=== PATIENT | male | born 1970 | race Caucasian/White ===

== ENCOUNTER → 2024-02-01 08:43 | Outpatient (BNVA) | payer OTHER, SELFPAY | PROVIDERS: Visit Provider Physician Assistant Medical | DX: S61.211A Laceration without foreign body of left index finger without damage to nail, initial encounter (principal); S62.661A Nondisplaced fracture of distal phalanx of left index finger, initial encounter for closed fracture; W31.1XXA Contact with metalworking machines, initial encounter | CPT/HCPCS: 12001; 73140; 99204 ==

== ENCOUNTER → 2024-02-04 08:05 | Outpatient (BNVA) | payer OTHER, SELFPAY | PROVIDERS: Visit Provider Physician Assistant Medical | DX: S61.211A Laceration without foreign body of left index finger without damage to nail, initial encounter (principal); S62.661A Nondisplaced fracture of distal phalanx of left index finger, initial encounter for closed fracture; W31.1XXA Contact with metalworking machines, initial encounter | CPT/HCPCS: 99213 ==

== ENCOUNTER → 2024-02-12 13:19 | Outpatient (BNVA) | payer OTHER, SELFPAY | PROVIDERS: Visit Provider Physician Assistant Medical | DX: S61.211A Laceration without foreign body of left index finger without damage to nail, initial encounter (principal); S62.661A Nondisplaced fracture of distal phalanx of left index finger, initial encounter for closed fracture; W31.1XXA Contact with metalworking machines, initial encounter | CPT/HCPCS: 99213 ==

== ENCOUNTER → 2024-02-26 11:48 | Outpatient (BNVA) | payer OTHER, SELFPAY | PROVIDERS: PCP Internal Medicine; Visit Provider Physician Assistant Medical | DX: S61.211D Laceration without foreign body of left index finger without damage to nail, subsequent encounter (principal); S62.661D Nondisplaced fracture of distal phalanx of left index finger, subsequent encounter for fracture with routine healing; W31.1XXD Contact with metalworking machines, subsequent encounter; L03.012 Cellulitis of left finger | CPT/HCPCS: 99213 ==

== ENCOUNTER → 2024-03-04 13:42 | Outpatient (BNVA) | payer OTHER, SELFPAY | PROVIDERS: PCP Internal Medicine; Visit Provider Physician Assistant Medical | DX: S61.211D Laceration without foreign body of left index finger without damage to nail, subsequent encounter (principal); S62.661D Nondisplaced fracture of distal phalanx of left index finger, subsequent encounter for fracture with routine healing; W31.1XXD Contact with metalworking machines, subsequent encounter | CPT/HCPCS: 99213 ==

== ENCOUNTER → 2025-01-09 14:48 | Outpatient (BNVA) | payer OTHER, SELFPAY | PROVIDERS: PCP Internal Medicine; Visit Provider Emergency Medicine | DX: M25.542 Pain in joints of left hand (principal) | CPT/HCPCS: 73130; 99203 ==

== ENCOUNTER → 2025-02-02 15:13 | Outpatient (BNVA) | payer OTHER, SELFPAY | PROVIDERS: PCP Internal Medicine; Visit Provider Emergency Medicine | DX: S67.191D Crushing injury of left index finger, subsequent encounter (principal); W31.1XXD Contact with metalworking machines, subsequent encounter; Z02.79 Encounter for issue of other medical certificate | CPT/HCPCS: 99214 ==

== ENCOUNTER 2025-02-28 08:50 | Outpatient (REF) | payer OTHER, SELFPAY ==
--- NOTE | ~2025-02-28 | XR_ITS ---
EXAMINATION: XR HAND, LEFT CLINICAL INFORMATION: M79.642 - Pain in left hand. Attention left thumb COMPARISON: X-ray 01/09/2025 TECHNIQUE: PA, lateral, and oblique views of the left hand. FINDINGS: Bone mineralization is normal. Soft tissue marker positioned pointing to the first digit. Mild first CMC, MCP and IP joint arthritis. No visible acute fracture or dislocation. Stable small corticated ossification adjacent to the ulna styloid process. No acute fractures otherwise seen. Mild arthritis of the IP and DIP joints of the fingers, more prominent in the fifth DIP joint, similar from previous.. No abnormal soft tissue calcification. XR/XR hand LT min 3V IMPRESSION: Osteoarthritis of the left hand as detailed above. Electronically signed by: Angus Macdonald MD 03/01/2025 07:24 AM REA
== END 2025-02-28 08:51 | disposition home or self-care (01) ==
LOC: HO.HOSX 08:50
PROVIDERS: Visit Provider Orthopaedic Surgery
DX: M18.12 Unilateral primary osteoarthritis of first carpometacarpal joint, left hand (principal)
CPT/HCPCS: 73130

== ENCOUNTER 2025-02-28 12:50 | Outpatient (AMB) | payer OTHER, SELFPAY ==
--- NOTE | 2025-02-28 12:59 | MHC.OFFVIS ---
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 States he has to do a lot of repetitive movement at work and this could be the cause of his pain. He has pain when bending thumb inward and feels soreness when his thumb is hyper extended back. At times has a sharp pain that radiates to his thenar muscle and to his wrist. He has numbness and tingling in his thumb as well as pain that has worsen in the last 6 months. No EMG done. 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 He complains of pain in his left thumb, near the base. His pain is worse with repetitive activities, hyperextension, or gripping activities. 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 Review of Systems Const All systems reviewed & are unremarkable except as noted in HPI and below Physical Exam Vital Signs: BMI result Body Mass Index 27.3 Const General: cooperative, healthy appearing and no acute distress Orientation/consciousness: patient oriented x3 HEENT Head: Yes normocephalic and Yes atraumatic Eyes EOM: EOMs intact bilaterally Resp Effort & Inspection: normal respiratory effort and able to speak in complete sentences Cardio Jugular venous distension: no JVD Skin General skin exam: turgor normal Rashes: no rashes Neuro General: patient oriented x3 Extrem Other: Evaluation of Left Upper Extremity: The patient is alert, oriented, and in no acute distress Neuro: Median, Ulnar, Radial nerves motor and sensory intact and sensation is normal to the tips of all digits Vascular: Cap refill brisk ROM: He can make a fist and extend all his digits No locking or catching Skin: No lacerations or abrasions. General: No Ecchymosis. No Erythema or evidence of infection. Most tender over basal joint mildly positive shoulder sign No tenderness over the a1 dajuan, MCP joint, or 1st dorsal compartment Negative finklstein test Radiographs: 3 views of the left hand were taken and viewed by me today in clinic. They show no fractures or dislocations. There is some mild basal joint arthritis and early arthritic changes in the thumb MCP & IP joints. Psych Appearance: grossly normal Affect: normal affect Attitude: cooperative Office Procedures AMB Fracture Care Details: no fracture, injection Fracture Billing Code: Fracture Billing Code Assessment & Plan Assessment & Plan (1) Arthritis of carpometacarpal (CMC) joint of left thumb: Code(s): M18.12 - Unilateral primary osteoarthritis of first carpometacarpal joint, left hand Category: Medical Plan Assessment & Plan: 1. Left basal joint arthritis Aggravated by prolonged repetitive work tasks This is a workers comp visit I educated him about this condition I discussed operative and non-operative treatment options The patient would like to proceed with an injection I discussed activity modification, they should limit or avoid any heavy or repetitive pinching or gripping activities He was fitted for a comfort cool brace to wear with daily activity He should work on ROM exercises, and avoid any gripping or strengthening activities I discussed the use of assistive devices for daily activity Injection #1: The risks and benefits of a steroid injection including but not limited to risk of damage to blood vessels, nerve, tendon, infection, skin bleaching, persistent or worsening pain, and failure to improve symptoms were discussed with the patient and they wish to proceed with the steroid injection. Once consent was obtained the skin over the dorsum of the Left basal joint was sterilely prepped. The joint was then injected with a combination of 1 mL of dexamethasone (4mg/ml) and 1% plain Lidocaine. The patient appears to have tolerated the procedure well and with no complications. He had good early relief before leaving clinic today. He knows that they may not have another steroid injection into this joint for least 4 months. Scribed for Shara Jacobsen MD by Saurabh Aguayo administrative medical director, on 02/28/25 at 1:30 PM, EST. Orders: Orders XR hand LT min 3V Today M79.642 - Pain in left hand Coding Level of Care Code New Pt Level 3 (08250) Diagnoses Arthritis of carpometacarpal (CMC) joint of left thumb M18.12 CPT Codes Fracture Care - Fracture Billing Code: Fracture Billing Code ([id number])
[2025-02-28 13:09] VITALS: BMI 27.3
== END 2025-02-28 13:54 | disposition home or self-care (01) ==
LOC: HO.HOS 12:51
PROVIDERS: PCP Internal Medicine; Visit Provider Orthopaedic Surgery
DX: M18.12 Unilateral primary osteoarthritis of first carpometacarpal joint, left hand (principal)
CPT/HCPCS: 20600; 99203

== ENCOUNTER → 2025-02-28 12:52 | Outpatient (BNV) | payer OTHER, SELFPAY | PROVIDERS: Visit Provider Radiology Diagnostic Ultrasound | DX: M79.642 Pain in left hand (principal) | CPT/HCPCS: 73130 ==